=== PATIENT | female | born 1995 ===

== ENCOUNTER 2016-08-27 17:43 | Emergency (ER) | payer BC, MEDICAID ==
[~2016-08-27 17:43] MED LIST: MOTRIN-DPS800 MG PO; NIPPLECREAM TP; PRENATAL VIT1 TAB PO; TYLENOL #3 DPS1 TAB PO; VALTREX DPS500 MG PO
--- NOTE | 2016-08-29 09:10 | NUR ---
Received SAD person referral. Pt was EPC'd to [facility].
--- NOTE | 2016-09-07 21:34 | ER ---
ADMIT: 08/27/2016 RM/LOC: ER [facility] MR#: [id number] [address] [id number] SHONDA FELIX [address] [address] Emergency Room Report SEX: F AGE: 21 : 1995 DATE: 08/27/2016 ADDENDUM: This patient comes to the ER by ambulance because she took an unknown amount of medication approximately 3 to 4 weeks ago. Initially, she told us she may be . She then later told us that she did a self- 2 weeks ago using a plant changer. She is uncooperative in the emergency room. Her vital signs were normal. This patient was initially seen by Dr. Fragoso. She was given charcoal via NG. She refused to really give any information about the types of pills that she took; however, it was noticed that she had Xanax at home. Her test was negative. Her CBC, BMP, and UA were also negative. Police were present, and they will be EPC'ng her to [facility]. Please see my T-sheet. MIAH Rivera / Wenceslao Fragoso MD / ceciliol JOB #: [id number] CC: Wenceslao Fragoso MD, Attending Physician UNKNOWN, Family Physician Alex Nicole MD
== END 2016-08-27 21:20 ==
LOC: ER 17:43
DX: T50.902A Poisoning by unspecified drugs, medicaments and biological substances, intentional self-harm, initial encounter (principal); F32.9 Major depressive disorder, single episode, unspecified